=== PATIENT | female | born 1985 | race Caucasian/White ===

== ENCOUNTER 2020-08-12 08:14 | Emergency (ER) | payer OTHER, SELFPAY ==
--- NOTE | 2020-08-12 08:21 | ED.GENADULT ---
HPI - General Adult General Chief complaint: Extremity Problem,Nontraumatic Stated complaint: R LEG PAIN Time Seen by Provider: 08/12/20 08:26 Source: patient and RN notes reviewed Mode of arrival: ambulatory Limitations: no limitations History of Present Illness HPI narrative: 35-year-old female presents with complains of pain and redness to back of right leg for 1 day. Eva reports being told to seek medical care due to ride from [place] to [place] (08/08/2020). During drive stopped every 4 hours. On 08/11/2020 went hiking with family and pain started afterwards, noted red area also. No treatment. No know injury. Denies radiation of pain. No numbness or tingling or bleeding. No swelling. No loss of mobility. Exacerbating factor consist of palpation of david area. Denies history of DVT or PE. No chest pain or dyspnea. Remains active. LMP 07/31/2020, current on control (restarted 06/2020). The patient reports she have not been diagnosed with COVID-19. The patient reports she received 2 injections of [employer] COVID-19 vaccine in June 2020. The patient reports she is not waiting for the results of a COVID-19 lab test. The patient reports she do not have chills, weakness, or fatigue. The patient reports she do not have a new or worsening cough or shortness of breath. Denies chest pain. The patient reports she do not have any rhinorrhea, congestion, sore throat, loss of taste or smell, nausea, vomiting, abdominal pain, and diarrhea. Tolerating po intake well. Recently traveled here from [place]. At this time, patient is not suspected of having COVID-19. Some parts of this dictation were generated by voice recognition software and may contain typographical and/or grammatical inaccuracies. Related Data Home Medications Medication Instructions Recorded Confirmed norethindrone-e.estradiol-iron tablet 08/12/20 [Aurovela Fe 1-20 (28)] valacyclovir 08/12/20 Allergies Allergy/AdvReac Type Severity Reaction Status Date / Time No Known Allergies Allergy Mild Verified 02/15/10 11:52 Review of Systems Review of Systems: Narrative: CONSTITUTIONAL: Denies fever, chills, sweats. EYES: Denies visual changes, redness, discharge. ENT: Denies rhinorrhea, congestion, sore throat, otalgia. CARDIOVASCULAR: Denies chest pain, palpitations, edema. RESPIRATORY: Denies dyspnea, wheezing, cough. GASTROINTESTINAL: Denies abdominal pain, nausea, vomiting, diarrhea. SKIN: Denies rash or itching. Complains of redness to right leg. MUSCULOSKELETAL: Denies acute back pain or myalgia. Complains of pain to back of right leg. NEUROLOGIC: Denies numbness or focal weakness. PSYCHIATRIC: Denies anxiety or depression. All other systems reviewed & are unremarkable except as noted in HPI and below. [facility] Past Medical History Medical History (Updated 08/12/20 @ 09:26 by NELDA Laird) delivery delivered Cold sore Surgical History Surgical History (Updated 08/12/20 @ 09:09 by NELDA Laird) H/O section X2 has a 2 y.o. and a 4 y.o. Family History Family History (Updated 08/12/20 @ 09:10 by NELDA Laird) Father Vasculitis Mother Alive and well Social History Social History (Updated 08/12/20 @ 09:12 by NELDA Laird) Smoking status: Former smoker Tobacco type: cigarettes Second hand tobacco smoke exposure: No Smoking end date: 05/09/05 Alcohol intake: current Substance use: never Occupation/Education: occupation Gender identity (if verbalized by the patient): Female Sexual Orientation (if Verbalized by the Patient): Straight or Heterosexual Comments At time of signature, agree with nurse past medical, surgical, social, and family history. There is no relevant family history pertinent to the presenting complaint. Exam Narrative: Exam Narrative: GENERAL: This is a well-nourished, well-developed patient, in no apparent distress
[2020-08-12 08:26] VITALS: BP 134/91; PULSE 81; RESP 16; TEMP 36.7; O2SAT 100
[2020-08-12 08:56] VITALS: BP 120/82
== END 2020-08-12 08:58 | disposition home or self-care (01) ==
PROVIDERS: Emergency Provider Nurse Practitioner Family
DX: M79.661 Pain in right lower leg (principal); L53.9 Erythematous condition, unspecified; Z87.891 Personal history of nicotine dependence
CPT/HCPCS: 99202; G0463